=== PATIENT | male | born 1985 | race Caucasian/White ===

== ENCOUNTER 2017-08-31 16:47 | Emergency (ER) | payer SELFPAY ==
[~2017-08-31] VITALS: Ht 167.6 cm; Wt 117.9 kg
[~2017-08-31 16:47] MED LIST: GLUCOPHAGE XR500 MG; KEPPRA500 MG
--- OUTSIDE RECORDS SUMMARY | 2017-08-31 16:49 | XMS REPORT ---
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 Allergies, Adverse Reactions, Alerts This patient has no known allergies or adverse reactions. Medications This patient has no known medications. Encounters Start Date/Time End Date/Time Encounter Type Admission Type Attending [facility] Care Department Encounter ID 2017-06-23 00:00:00 2017-06-23 00:00:00 Outpatient [facility] [id number] 2017-06-16 00:00:00 2017-06-16 00:00:00 Outpatient [facility] [id number] 2017-06-08 00:00:00 2017-06-08 00:00:00 Outpatient [facility] [id number] 2017-06-03 00:00:00 2017-06-03 00:00:00 Outpatient [facility] [id number] 2017-05-27 15:17:47 2017-05-27 15:17:47 Outpatient [facility] [id number] 2017-05-27 15:09:22 2017-05-27 15:09:22 Outpatient [facility] [id number] 2017-05-27 14:15:25 2017-05-27 14:15:25 Outpatient [facility] [id number] 2017-05-14 00:00:00 2017-05-14 00:00:00 Outpatient [facility] [id number] 2017-03-25 00:00:00 2017-03-25 00:00:00 Outpatient [facility] [id number] 2017-02-08 12:52:00 2017-02-08 12:52:00 Emergency [facility] [id number] 2017-01-30 09:13:26 2017-01-30 09:13:26 Outpatient [facility] [id number]
[2017-08-31] MEDS ORDERED: METFORMIN HCL500 M2 PO (17:12)
[2017-08-31] MEDS ORDERED: BUSPIRONE HCL5 MG PO (17:12)
[2017-08-31] MEDS ORDERED: ZOLOFT100 MG PO (17:12)
[2017-08-31] MEDS ORDERED: KEPPRA500 MG PO (17:12)
[2017-08-31] MEDS ORDERED: GABAPENTIN600 MG PO (17:12)
[2017-08-31] MEDS ORDERED: SEROQUEL25 MG PO (17:12)
[2017-08-31 19:48] VITALS: BP 150/92
== END 2017-08-31 18:00 | disposition home or self-care (01) ==
LOC: FSED 16:47
DX: M54.5 Low back pain (principal); S39.012A Strain of muscle, fascia and tendon of lower back, initial encounter; Y93.89 Activity, other specified; Y99.0 Civilian activity done for income or pay; E11.9 Type 2 diabetes mellitus without complications; F41.9 Anxiety disorder, unspecified; F32.9 Major depressive disorder, single episode, unspecified; G40.909 Epilepsy, unspecified, not intractable, without status epilepticus
CPT/HCPCS: 99283

== ENCOUNTER 2021-04-16 10:00 | Emergency (ER) | payer MEDICARE, OTHER ==
[~2021-04-16] VITALS: Ht 167.6 cm; Wt 117.9 kg
[~2021-04-16 10:00] MED LIST changes: +BUSPIRONE HCL5 MG PO; +GABAPENTIN600 MG PO; +KEPPRA500 MG PO; +METFORMIN HCL500 M2 PO; +SEROQUEL25 MG PO; +ZOLOFT100 MG PO
[2021-04-16 11:02] VITALS: BP 152/80
== END 2021-04-16 10:40 | disposition home or self-care (01) ==
LOC: ER 10:15
DX: R10.33 Periumbilical pain (principal); K42.9 Umbilical hernia without obstruction or gangrene; E78.00 Pure hypercholesterolemia, unspecified; F41.9 Anxiety disorder, unspecified
CPT/HCPCS: 99283